=== PATIENT | female | born 1995 | race Caucasian/White ===

== ENCOUNTER 2023-07-01 21:28 | Emergency (ER) | payer BC, OTHER ==
[~2023-07-01] VITALS: Ht 172.7 cm; Wt 56.7 kg
[2023-07-01] MEDS ORDERED: ACYC400T19 PO (22:47)
[2023-07-01] MEDS ORDERED: ACYCLOVIR 200 MG CAPSULE ONE (23:00)
[2023-07-01] MEDS ORDERED: ACYCLOVIR 200 MG CAPSULE PO ONE (23:00)
[2023-07-01 23:03] VITALS: BP 116/62; TEMP 98; O2SAT 96
== END 2023-07-01 23:03 | disposition home or self-care (01) ==
LOC: ER 21:36
DX: R21 Rash and other nonspecific skin eruption (principal); Z79.899 Other long term (current) drug therapy